=== PATIENT | male | born 1970 | race Caucasian/White ===

== ENCOUNTER 2019-01-18 14:01 | Inpatient (IN) | payer OTHER ==
[2019-01-18 17:02] VITALS: BMI 25.4
--- NOTE | 2019-01-18 21:22 | HP ---
COWS - Scale Resting Pulse: 0= [place] 80 or Below Sweatin= Chills/Flushing Restless Observation: 1= Difficult to Sit Still Pupil Size: 1= Pupils >than Normal Bone or Joint Aches: 1= Mild Discomfort Runny Nose/ Eye Tearin= Runny Nose/Eyes GI Upset > 30mins: 1= Stomach Cramp Tremor Observation: 2= Slight Tremor Visible Yawning Observation: 0= None Anxiety or Irritability: 2=Irritable/Anxious Goose Flesh Skin: 0=Smooth Skin COWS Score: 11 CIWA Score - Admission Criteria [facility]ASAS Guidelines: Admission for Medically Managed Detox: Requires at least one of the followin. CIWA greater than 12 2. Seizures within the past 24 hours 3. Delirium tremens within the past 24 hours 4. Hallucinations within the past 24 hours 5. Acute intervention needed for co occurring medical disorder 6. Acute intervention needed for co occurring psychiatric disorder 7. Severe withdrawal that cannot be handled at a lower level of care (continued vomiting, continued diarrhea, abnormal vital signs) requiring intravenous medication and/or fluids 8. Admission ROS [facility] Chief Complaint: heroin detox Allergies/Adverse Reactions: Allergies Allergy/AdvReac Type Severity Reaction Status Date / Time haloperidol Allergy Unknown Verified 01/18/19 21:12 History of Present Illness: 48 y.o. man with an extensive history of heroin (heroin) and cocaine dependence is here seeking detox services. Reports he was previously enrolled at [facility] but he stopped attending the program 1 year ago. Client was admitted to [facility] on 12/19/18 and was discharged 01/13/19. Patient reports hx schizoaffective, bipolar, insomnia and anxiety. Denies hx of seizures or blackouts. Exam Limitations: No Limitations - Ebola screening Have you traveled outside of the country in the last 21 days: No Have you had contact with anyone from an Ebola affected area: No Have you been sick,other than usual withdrawal symptoms: No Do you have a fever: No - Review of Systems Constitutional: Chills, Loss of Appetite, Changes in sleep, Unintentional Wgt. Loss, Other (fatigue) EENT: reports: Tearing, Nose Congestion Respiratory: reports: No Symptoms reported Cardiac: reports: Other (reports gets chest pain when smoke cigarettes, no chest pain this time) GI: reports: Constipated (last BM yesterday), Poor Appetite, Poor Fluid Intake, Abdominal cramping : reports: No Symptoms Reported Musculoskeletal: reports: Back Pain (low back) Integumentary: reports: Pruritus, Sweating Endocrine: reports: Excessive Sweating, Increased Thirst Hematology: reports: No Symptoms Reported Psychiatric: reports: Orientated x3, Anxious Other Systems: Reviewed and Negative Patient History - Patient Medical History Hx Anemia: No Hx Asthma: No Hx Chronic Obstructive Pulmonary Disease (COPD): No Hx Cancer: No Hx Cardiac Disorders: No Hx Congestive Heart Failure: No Hx Hypertension: No Hx Hypercholesterolemia: Yes (lipitor 20mg/day) Hx Pacemaker: No HX Cerebrovascular Accident: No Hx Seizures: No Hx Dementia: No Hx Diabetes: No Hx Gastrointestinal Disorders: No Hx Liver Disease: No Hx Genitourinary Disorders: No Hx Sexually Transmitted Disorders: No Hx Renal Disease (ESRD): No Hx Thyroid Disease: No Hx Human Immunodeficiency Virus (HIV): No Hx Hepatitis C: No Hx Depression: Yes Hx Suicide Attempt: No Hx Bipolar Disorder: Yes Hx Schizophrenia: Yes - Patient Surgical History Past Surgical History: No Hx Neurologic Surgery: No Hx Cataract Extraction: No Hx Cardiac Surgery: No Hx Lung Surgery: No Hx Breast Surgery: No Hx Breast Biopsy: No Hx Abdominal Surgery: No Hx Appendectomy: No Hx Cholecystectomy: No Hx Genitourinary Surgery: No Hx Section: No Hx Orthopedic Surgery: No Anesthesia Reaction: No - PPD History Previous Implant?: No Documented Results: Negative w/proof Date: 01/30/12 PPD to be Administered?: Yes - Smoking Cessation Smoking history: Current every day smoker Have you smoked in the past 12 months: Yes Aproximately how many cigarettes per day: 5 Cigars Per Day: 0 Hx Chewing Tobacco Use: No Initiated information on smoking cessation: Yes 'Breaking Loose' booklet given: 01/18/19 - Substance & Tx. History Hx Alcohol Use: No Hx Substance Use: Yes Substance Use Type: None, Heroin Hx Substance Use Treatment: Yes (1 year ago, does not recall the name of the facility ) - Substances Abused Heroin Route: sniff Frequency: Daily Amount used: 5 bags Age of first use: 13 Date of Last Use: 01/18/19 Family Disease History - Family Disease History Family Disease History: Respiratory: Mother (COPD ) Admission Physical Exam BHS - Vital Signs Vital Signs: Vital Signs - 24 hr 01/18/19 17:01 Temperature 97.9 F Pulse Rate 78 Respiratory 18 Rate Blood Pressure 118/74 - Physical General Appearance: Yes: Disheveled, Thin, Anxious HEENTM: Yes: EOMI, Hearing grossly Normal, Normal ENT Inspection, Normocephalic , Normal Voice, LAURIE, Pharynx Normal, Rhinorrhea, Other (cheilitis) Respiratory: Yes: Chest Non-Tender, Lungs Clear, Normal Breath Sounds, No Respiratory Distress, No Accessory Muscle Use Neck: Yes: Within Normal Limits Breast: Yes: Breast Exam Deferred Cardiology: Yes: Regular Rhythm, Regular Rate Abdominal: Yes: Normal Bowel Sounds, Non Tender, Flat, Soft Genitourinary: Yes: Within Normal Limits Back: Yes: Normal Inspection Musculoskeletal: Yes: full range of Motion, Gait Steady, Pelvis Stable, Muscle weakness Extremities: Yes: Normal Capillary Refill, Normal Inspection, Normal Range of Motion, Non-Tender Neurological: Yes: marketing project lead II-XII NML intact, Fully Oriented, Alert, Motor Strength 5/5, Depressed Affect Integumentary: Yes: Normal Color, Warm, Diaphoresis Lymphatic: Yes: Within Normal Limits - Diagnostic (1) Cocaine dependence Current Visit: Yes Status: Chronic Qualifiers: Substance use status: uncomplicated Qualified Code(s): F14.20 - Cocaine dependence, uncomplicated (2) Nicotine dependence Current Visit: Yes Status: Chronic Qualifiers: Nicotine product type: cigarettes (3) Opioid dependence, uncomplicated Current Visit: Yes Status: Chronic Cleared for Admission [facility] - Detox or Rehab [facility] Level of Care: Medically Managed Detox Regimen/Protocol: Methadone [facility] Breath Alcohol Content Breath Alcohol Content: 0 Urine Drug Screen - Results Drug Screen Negative: No Urine Drug Screen Results: OPI-Opiates Inpatient Rehab Admission - Rehab Decision to Admit Inpatient rehab admission?: No
[2019-01-18] MEDS ORDERED: MAG HYDROX/AL HYDROX/SIMETH 30 ML UNIT-DOSE CUP PO PRN (21:29)
[2019-01-18] MEDS ORDERED: guaiFENesin 200 MG/10 ML 10 ML UNIT-DOSE CUPS PO PRN (21:29)
[2019-01-18] MEDS ORDERED: PROCHLORPERAZINE MALEATE 5 MG TABLET PO PRN (21:29)
[2019-01-18] MEDS ORDERED: ACETAMINOPHEN 325 MG TABLET (FP) PO PRN ×2 (21:29)
[2019-01-18] MEDS ORDERED: IBUPROFEN 400 MG TABLET (FP) PO PRN (21:29)
[2019-01-18] MEDS ORDERED: MENTHOL/PHENOL 1 EACH UD MM PRN (21:29)
[2019-01-18] MEDS ORDERED: BISMUTH SUBSALICYLATE 524 MG/30 ML UD PO PRN (21:29)
[2019-01-18] MEDS ORDERED: MAGNESIUM CITRATE 300 ML BOTTLE PO PRN (21:29)
[2019-01-18] MEDS ORDERED: P-EPHED 60MG/TRIPROLIDI 2.5MG TABLET PO PRN (21:29)
[2019-01-18] MEDS ORDERED: NICOTINE POLACRILEX 2 MG GUM BUC PRN (21:29)
[2019-01-18] MEDS ORDERED: MAGNESIUM HYDROX 2400MG/30ML ORAL SUSPENSION 30 ML CUP PO PRN (21:29)
[2019-01-18] MEDS ORDERED: METHOCARBAMOL 500 MG TABLET PO PRN (21:29)
[2019-01-18] MEDS: THIAMINE HCL 100 MG TABLET (FP) PO SCH (22:53)
[2019-01-18] MEDS: hydrOXYzine PAMOATE 25 MG CAPSULE (FP) PO PRN (22:56)
[2019-01-18] MEDS: MELATONIN 5 MG TABLETS PO PRN (22:56)
[2019-01-18] MEDS ORDERED: METHADONE HCL 10 MG TABLET (FOR DETOX USE ONLY) PO ONE (23:00)
[2019-01-19 05:14] LABS: URINE APPEARANCE CLEAR; URINE BILIRUBIN NEGATIVE (NEGATIVE); URINE COLOR YELLOW; URINE GLUCOSE (UA) NEGATIVE (NEGATIVE); URINE KETONE TRACE (NEGATIVE); URINE LEUK ESTERASE NEGATIVE (NEGATIVE); URINE NITRITE NEGATIVE (NEGATIVE); URINE PROTEIN NEGATIVE (NEGATIVE); URINE UROBILINOGEN 0.2 mg/dL (0.2-1.0)
--- NOTE | 2019-01-19 09:29 | EKG ---
Test Reason : Blood Pressure : / mmHG Vent. Rate : 082 BPM Atrial Rate : 082 BPM P-R Int : 140 ms QRS Dur : 086 ms QT Int : 380 ms P-R-T Axes : 062 045 039 degrees QTc Int : 443 ms NORMAL SINUS RHYTHM NORMAL ECG NO PREVIOUS ECGS AVAILABLE Confirmed by SB BHATIA MD ([id number]) on 01/19/2019 9:29:05 AM Referred By: Confirmed By:SB BHATIA MD
[2019-01-19] MEDS: PRENATAL VITAMINS W/ FOLIC ACID TABLET (FP) PO SCH (09:43)
[2019-01-19] MEDS: hydrOXYzine PAMOATE 25 MG CAPSULE (FP) PO PRN ×2 (09:44→17:37)
[2019-01-19] MEDS: NICOTINE 14 MG/24 HOURS TOPICAL PATCH TD SCH (09:44)
[2019-01-19] MEDS ORDERED: METHADONE HCL 5 MG TABLET (FOR DETOX USE ONLY) PO ONE (10:00)
[2019-01-19 12:21] LABS: HEMOGLOBIN 12.8 GM/dL (11.7-16.9); MCH 31.5 pg (25.7-33.7); MCHC 33.7 g/dl (32.0-35.9); MEAN CELL VOLUME 93.5 fl (80-96); PLATELET COUNT 255 K/MM3 (134-434); RBC 4.06 M/mm3 (4.00-5.60); RDW 15.2 % (11.9-15.9); WHITE BLOOD COUNT 7.1 K/mm3 (4.0-10.0)
[2019-01-19 12:28] LABS: ALBUMIN 3.4 g/dl (3.4-5.0); ALK PHOS 62 U/L (45-117); ANION GAP 6 MMOL/L (8-16); BILIRUBIN,TOTAL 0.3 mg/dL (0.2-1); BLOOD UREA NITROGEN 18 mg/dL (7-18); CALCIUM 8.4 mg/dL (8.5-10.1); CHLORIDE 105 mmol/L (98-107); CO2 31 mmol/L (21-32); CREATININE 0.8 mg/dL (0.55-1.3); GLUCOSE,RANDOM 82 mg/dL (74-106); POTASSIUM 4.5 mmol/L (3.5-5.1); SGOT/AST 7 U/L (15-37); SGPT/ALT 15 U/L (13-61); SODIUM 142 mmol/L (136-145); TOT PROT 6.2 g/dl (6.4-8.2)
--- NOTE | 2019-01-19 14:03 | CONSULT ---
[facility] Psychiatric Consult - Data Date of interview: 01/19/19 Admission source: [facility] Identifying data: Readmission to [facility] for this 48 y/o male self- referred for detoxification (heroin, cocaine). Examined on [address]. Patient is single, no children, domiciled, unemployed and supported on SSI benefits. Substance Abuse History: Confirmed by the patient in this interview. Details in current [facility] report : Smoking history: Current every day smoker. Have you smoked in the past 12 months: Yes. Aproximately how many cigarettes per day: 5. Cigars Per Day: 0. Hx Chewing Tobacco Use: No. Initiated information on smoking cessation: Yes. 'Breaking Loose' booklet given: 01/18/19. - Substance & Tx. History. Hx Alcohol Use: No. Hx Substance Use: Yes. Substance Use Type : None, Heroin. Hx Substance Use Treatment: Yes (1 year ago, does not recall the name of the facility ). - Substances Abused. Heroin. Route: sniff. Frequency: Daily. Amount used: 5 bags. Age of first use: 13. Date of Last Use : 01/18/19 Medical History: Dyslipidemia. Psychiatric History: Patient endorses a history of psychiatric hospitalizations ([facility], [facility]). Diagnosed with Schizoaffective Disorder. Mr Finn is currently followed at the [facility] OPD clinic on a regimen of valproate, cogentin, fluphenazine and propanolol. Used to be on methadone maintenance ([facility]). Dropped out about a year ago. No reported history of suicide attempts. Physical/Sexual Abuse/Trauma History: Patient denies. Additional Comment: Urine Drug Screen Results: OPI-Opiates. Noted. Mental Status Exam - Mental Status Exam Alert and Oriented to: Time, Place, Person Cognitive Function: Good Patient Appearance: Well Groomed Mood: Nervous, Withdrawn, Anxious Affect: Mood Congruent, Constricted Patient Behavior: Fatigued, Appropriate, Cooperative Speech Pattern: Clear Voice Loudness: Normal Thought Process: Goal Oriented Thought Disorder: Not Present Hallucinations: Denies Suicidal Ideation: Denies Homicidal Ideation: Denies Insight/Judgement: Poor Sleep: Well Appetite: Good Muscle strength/Tone: Normal Gait/Station: Normal Psychiatric Findings - Problem List ([place] 1, 2,3) (1) Opioid dependence, uncomplicated Current Visit: Yes Status: Chronic (2) Nicotine dependence Current Visit: Yes Status: Chronic Qualifiers: Nicotine product type: cigarettes (3) Substance induced mood disorder Current Visit: Yes Status: Chronic (4) Schizoaffective disorder Current Visit: Yes Status: Chronic - Initial Treatment Plan Initial Treatment Plan: Psychoeducation. Sleep hygiene. Support. Detoxification. Relapse prevention is discussed in this session. Medications resumed as : prolixin 5 mg po bid + cogentin 1 mg po hs + depakote 500 mg po hs. Side effects/benefits of each medicationare discussed with patient. Made awar of risk of abnormal involuntary movements, akathisia, dyskinesias, dystonias, neuroleptic malignant syndrome, blood dyscrasias, liver dysfunction and anticholinergic manifestations. Patient is in agreement with this plan of care. Consent (verbal) granted. Observation.
--- NOTE | 2019-01-19 15:38 | PN ---
BHS COWS - Scale Resting Pulse: 0= [place] 80 or Below Sweatin= Chills/Flushing Restless Observation: 0= Sits Still Pupil Size: 1= Pupils >than Normal Bone or Joint Aches: 1= Mild Discomfort Runny Nose/ Eye Tearin= Nasal Congestion GI Upset > 30mins: 1= Stomach Cramp Tremor Observation of Outstretched Hands: 1= Tremor [place], Not Seen Yawning Observation: 1= 1-2x During Session Anxiety or Irritability: 1=Feels Anxious/Irritable Goose Flesh Skin: 0=Smooth Skin COWS Score: 8 BHS Progress Note (SOAP) Subjective: reporting feeling better no trouble with the detox regimen ambulating on hallway Objective: 01/19/19 15:37 Vital Signs Temperature 96.8 F L 01/19/19 13:18 Pulse Rate 83 01/19/19 13:18 Respiratory Rate 16 01/19/19 13:18 Blood Pressure 126/77 01/19/19 13:18 O2 Sat by Pulse Oximetry (%) Laboratory Last Values WBC 7.1 K/mm3 (4.0-10.0) 01/19/19 07:30 RBC 4.06 M/mm3 (4.00-5.60) 01/19/19 07:30 Hgb 12.8 GM/dL (11.7-16.9) 01/19/19 07:30 Hct 38.0 % (35.4-49) 01/19/19 07:30 MCV 93.5 fl (80-96) 01/19/19 07:30 MCH 31.5 pg (25.7-33.7) 01/19/19 07:30 MCHC 33.7 g/dl (32.0-35.9) 01/19/19 07:30 RDW 15.2 % (11.9-15.9) 01/19/19 07:30 Plt Count 255 K/MM3 (134-434) D 01/19/19 07:30 MPV 8.0 fl (7.5-11.1) 01/19/19 07:30 Sodium 142 mmol/L (136-145) 01/19/19 07:30 Potassium 4.5 mmol/L (3.5-5.1) 01/19/19 07:30 Chloride 105 mmol/L (98-107) 01/19/19 07:30 Carbon Dioxide 31 mmol/L (21-32) 01/19/19 07:30 Anion Gap 6 MMOL/L (8-16) L 01/19/19 07:30 BUN 18 mg/dL (7-18) 01/19/19 07:30 Creatinine 0.8 mg/dL (0.55-1.3) 01/19/19 07:30 Creat Clearance w eGFR 103.62 (>60) 01/19/19 07:30 Random Glucose 82 mg/dL (74-106) 01/19/19 07:30 Calcium 8.4 mg/dL (8.5-10.1) L 01/19/19 07:30 Total Bilirubin 0.3 mg/dL (0.2-1) 01/19/19 07:30 AST 7 U/L (15-37) L 01/19/19 07:30 ALT 15 U/L (13-61) 01/19/19 07:30 Alkaline Phosphatase 62 U/L (45-117) 01/19/19 07:30 Total Protein 6.2 g/dl (6.4-8.2) L 01/19/19 07:30 Albumin 3.4 g/dl (3.4-5.0) 01/19/19 07:30 Urine Color Yellow 01/19/19 00:05 Urine Appearance Clear 01/19/19 00:05 Urine pH 6.0 (5.0-8.0) 01/19/19 00:05 Ur Specific [place] 1.022 (1.010-1.035) 01/19/19 00:05 Urine Protein Negative (NEGATIVE) 01/19/19 00:05 Urine Glucose (UA) Negative (NEGATIVE) 01/19/19 00:05 Urine Ketones Trace (NEGATIVE) H 01/19/19 00:05 Urine Blood Negative (NEGATIVE) 01/19/19 00:05 Urine Nitrite Negative (NEGATIVE) 01/19/19 00:05 Urine Bilirubin Negative (NEGATIVE) 01/19/19 00:05 Urine Urobilinogen 0.2 mg/dL (0.2-1.0) 01/19/19 00:05 Ur Leukocyte Esterase Negative (NEGATIVE) 01/19/19 00:05 RPR Titer Nonreactive (NONREACTIVE) 01/19/19 07:30 lab noted Assessment: 01/19/19 15:37 withdrawal sx Plan: continue detox
[2019-01-19] MEDS: MELATONIN 5 MG TABLETS PO PRN (22:14)
[2019-01-19] MEDS: DIVALPROEX SODIUM 500 MG TABLET E.C. PO SCH (22:15)
[2019-01-19] MEDS: THIAMINE HCL 100 MG TABLET (FP) PO SCH (22:15)
[2019-01-19] MEDS: BENZTROPINE MESYLATE 1 MG TABLET (FP) PO SCH (22:15)
[2019-01-20] MEDS: PRENATAL VITAMINS W/ FOLIC ACID TABLET (FP) PO SCH (09:57)
[2019-01-20] MEDS: NICOTINE 14 MG/24 HOURS TOPICAL PATCH TD SCH (09:59)
[2019-01-20] MEDS ORDERED: METHADONE HCL 10 MG TABLET (FOR DETOX USE ONLY) PO ONE (10:00)
--- NOTE | 2019-01-20 14:43 | PN ---
BHS COWS - Scale Resting Pulse: 0= [place] 80 or Below Sweatin= Chills/Flushing Restless Observation: 0= Sits Still Pupil Size: 0= Normal to Room Light Bone or Joint Aches: 1= Mild Discomfort Runny Nose/ Eye Tearin= None GI Upset > 30mins: 0= None Tremor Observation of Outstretched Hands: 1= Tremor [place], Not Seen Yawning Observation: 1= 1-2x During Session Anxiety or Irritability: 1=Feels Anxious/Irritable Goose Flesh Skin: 0=Smooth Skin COWS Score: 5 BHS Progress Note (SOAP) Subjective: feeling better less body aches sleep better at night Objective: 01/20/19 14:43 Vital Signs Temperature 99.0 F 01/20/19 13:46 Pulse Rate 72 01/20/19 13:46 Respiratory Rate 18 01/20/19 13:46 Blood Pressure 102/62 01/20/19 13:46 O2 Sat by Pulse Oximetry (%) Laboratory Last Values WBC 7.1 K/mm3 (4.0-10.0) 01/19/19 07:30 RBC 4.06 M/mm3 (4.00-5.60) 01/19/19 07:30 Hgb 12.8 GM/dL (11.7-16.9) 01/19/19 07:30 Hct 38.0 % (35.4-49) 01/19/19 07:30 MCV 93.5 fl (80-96) 01/19/19 07:30 MCH 31.5 pg (25.7-33.7) 01/19/19 07:30 MCHC 33.7 g/dl (32.0-35.9) 01/19/19 07:30 RDW 15.2 % (11.9-15.9) 01/19/19 07:30 Plt Count 255 K/MM3 (134-434) D 01/19/19 07:30 MPV 8.0 fl (7.5-11.1) 01/19/19 07:30 Sodium 142 mmol/L (136-145) 01/19/19 07:30 Potassium 4.5 mmol/L (3.5-5.1) 01/19/19 07:30 Chloride 105 mmol/L (98-107) 01/19/19 07:30 Carbon Dioxide 31 mmol/L (21-32) 01/19/19 07:30 Anion Gap 6 MMOL/L (8-16) L 01/19/19 07:30 BUN 18 mg/dL (7-18) 01/19/19 07:30 Creatinine 0.8 mg/dL (0.55-1.3) 01/19/19 07:30 Creat Clearance w eGFR 103.62 (>60) 01/19/19 07:30 Random Glucose 82 mg/dL (74-106) 01/19/19 07:30 Calcium 8.4 mg/dL (8.5-10.1) L 01/19/19 07:30 Total Bilirubin 0.3 mg/dL (0.2-1) 01/19/19 07:30 AST 7 U/L (15-37) L 01/19/19 07:30 ALT 15 U/L (13-61) 01/19/19 07:30 Alkaline Phosphatase 62 U/L (45-117) 01/19/19 07:30 Total Protein 6.2 g/dl (6.4-8.2) L 01/19/19 07:30 Albumin 3.4 g/dl (3.4-5.0) 01/19/19 07:30 Urine Color Yellow 01/19/19 00:05 Urine Appearance Clear 01/19/19 00:05 Urine pH 6.0 (5.0-8.0) 01/19/19 00:05 Ur Specific [place] 1.022 (1.010-1.035) 01/19/19 00:05 Urine Protein Negative (NEGATIVE) 01/19/19 00:05 Urine Glucose (UA) Negative (NEGATIVE) 01/19/19 00:05 Urine Ketones Trace (NEGATIVE) H 01/19/19 00:05 Urine Blood Negative (NEGATIVE) 01/19/19 00:05 Urine Nitrite Negative (NEGATIVE) 01/19/19 00:05 Urine Bilirubin Negative (NEGATIVE) 01/19/19 00:05 Urine Urobilinogen 0.2 mg/dL (0.2-1.0) 01/19/19 00:05 Ur Leukocyte Esterase Negative (NEGATIVE) 01/19/19 00:05 Valproic Acid 4.3 ug/ml (50-100) L 01/20/19 06:30 RPR Titer Nonreactive (NONREACTIVE) 01/19/19 07:30 lab noted Assessment: 01/20/19 14:43 mild withdrawal sx Plan: continue detox
[2019-01-20] MEDS: THIAMINE HCL 100 MG TABLET (FP) PO SCH (22:30)
[2019-01-20] MEDS: BENZTROPINE MESYLATE 1 MG TABLET (FP) PO SCH (22:31)
[2019-01-20] MEDS: DIVALPROEX SODIUM 500 MG TABLET E.C. PO SCH (22:31)
[2019-01-21] MEDS ORDERED: METHADONE HCL 5 MG TABLET (FOR DETOX USE ONLY) PO ONE (06:00)
[2019-01-21 10:28] VITALS: BP 100/65; PULSE 65; TEMP 97.4
[2019-01-21] MEDS: NICOTINE 14 MG/24 HOURS TOPICAL PATCH TD SCH (10:45)
[2019-01-21] MEDS: PRENATAL VITAMINS W/ FOLIC ACID TABLET (FP) PO SCH (10:46)
--- NOTE | 2019-01-21 12:54 | DS ---
[facility] Detox Discharge Summary Admission Date: 01/18/19 Discharge Date: 01/21/19 - History Present History: Opioid Dependence Additional Comments: 48 eyars old male admitted on for opiate withdrawal stabilization completed detox regimen [facility] - Physical Exam Results Vital Signs: Vital Signs Temperature 97.4 F L 01/21/19 10:27 Pulse Rate 65 01/21/19 10:27 Respiratory Rate 18 01/21/19 10:27 Blood Pressure 100/65 01/21/19 10:27 O2 Sat by Pulse Oximetry (%) Pertinent Admission Physical Exam Findings: opiate withdrawal sx Laboratory Last Values WBC 7.1 K/mm3 (4.0-10.0) 01/19/19 07:30 RBC 4.06 M/mm3 (4.00-5.60) 01/19/19 07:30 Hgb 12.8 GM/dL (11.7-16.9) 01/19/19 07:30 Hct 38.0 % (35.4-49) 01/19/19 07:30 MCV 93.5 fl (80-96) 01/19/19 07:30 MCH 31.5 pg (25.7-33.7) 01/19/19 07:30 MCHC 33.7 g/dl (32.0-35.9) 01/19/19 07:30 RDW 15.2 % (11.9-15.9) 01/19/19 07:30 Plt Count 255 K/MM3 (134-434) D 01/19/19 07:30 MPV 8.0 fl (7.5-11.1) 01/19/19 07:30 Sodium 142 mmol/L (136-145) 01/19/19 07:30 Potassium 4.5 mmol/L (3.5-5.1) 01/19/19 07:30 Chloride 105 mmol/L (98-107) 01/19/19 07:30 Carbon Dioxide 31 mmol/L (21-32) 01/19/19 07:30 Anion Gap 6 MMOL/L (8-16) L 01/19/19 07:30 BUN 18 mg/dL (7-18) 01/19/19 07:30 Creatinine 0.8 mg/dL (0.55-1.3) 01/19/19 07:30 Creat Clearance w eGFR 103.62 (>60) 01/19/19 07:30 Random Glucose 82 mg/dL (74-106) 01/19/19 07:30 Calcium 8.4 mg/dL (8.5-10.1) L 01/19/19 07:30 Total Bilirubin 0.3 mg/dL (0.2-1) 01/19/19 07:30 AST 7 U/L (15-37) L 01/19/19 07:30 ALT 15 U/L (13-61) 01/19/19 07:30 Alkaline Phosphatase 62 U/L (45-117) 01/19/19 07:30 Total Protein 6.2 g/dl (6.4-8.2) L 01/19/19 07:30 Albumin 3.4 g/dl (3.4-5.0) 01/19/19 07:30 Urine Color Yellow 01/19/19 00:05 Urine Appearance Clear 01/19/19 00:05 Urine pH 6.0 (5.0-8.0) 01/19/19 00:05 Ur Specific [place] 1.022 (1.010-1.035) 01/19/19 00:05 Urine Protein Negative (NEGATIVE) 01/19/19 00:05 Urine Glucose (UA) Negative (NEGATIVE) 01/19/19 00:05 Urine Ketones Trace (NEGATIVE) H 01/19/19 00:05 Urine Blood Negative (NEGATIVE) 01/19/19 00:05 Urine Nitrite Negative (NEGATIVE) 01/19/19 00:05 Urine Bilirubin Negative (NEGATIVE) 01/19/19 00:05 Urine Urobilinogen 0.2 mg/dL (0.2-1.0) 01/19/19 00:05 Ur Leukocyte Esterase Negative (NEGATIVE) 01/19/19 00:05 Valproic Acid 4.3 ug/ml (50-100) L 01/20/19 06:30 RPR Titer Nonreactive (NONREACTIVE) 01/19/19 07:30 lab noted - Treatment Hospital Course: Detox Protocol Followed, Detoxed Safely, Responded well, Discharged Condition Good, Rehab Referral Accepted Patient has Accepted a [facility] Referral to: [facility] - Medication Discharge Medications: Ambulatory Orders Benztropine Mesylate [Cogentin -] 1 mg PO HS 01/13/19 Divalproex [Depakote -] 250 mg PO TID 01/13/19 Divalproex [Depakote -] 500 mg PO HS 01/13/19 Fluphenazine HCl [Prolixin -] 5 mg PO BID 01/13/19 Propranolol HCl 10 mg PO BID 01/13/19 Naloxone HCl [Narcan] 4 mg NS ASDIR PRN #1 spray 01/20/19 - Diagnosis (1) Nicotine dependence Status: Acute Qualifiers: Nicotine product type: cigarettes Substance use status: in withdrawal Qualified Code(s): F17.213 - Nicotine dependence, cigarettes, with withdrawal (2) Opioid dependence, uncomplicated Status: Acute (3) Substance induced mood disorder Status: Suspected - AMA Did Patient Leave Against Medical Advice: No
== END 2019-01-21 11:22 | disposition home or self-care (01) | DRG 773 ==
LOC: YASAS 14:01 → Y3N 21:37
PROVIDERS: ADMIT Surgery; ATTEND Surgery
PROC: HZ2ZZZZ Detoxification Services for Substance Abuse Treatment (ICD-10-PCS; principal; 2019-01-18)
DX: F11.23 Opioid dependence with withdrawal (principal); F17.213 Nicotine dependence, cigarettes, with withdrawal; F19.24 Other psychoactive substance dependence with psychoactive substance-induced mood disorder; F25.9 Schizoaffective disorder, unspecified; E78.5 Hyperlipidemia, unspecified
CPT/HCPCS: 36415; 80053; 80164; 81003; 85027; 86593; 93005; 93010